=== PATIENT | male | born 1985 | race Two or more races ===

== ENCOUNTER 2017-11-26 05:56 | Emergency (ER) | payer MEDICAID, MEDICARE ==
[~2017-11-26] VITALS: Ht 175.3 cm; Wt 75.0 kg
[2017-11-26 07:34] VITALS: BP 129/78
[2017-11-26] MEDS ORDERED: LIDOCAINE HCL 1% 20ML VIAL (Pyxis) INJ INFIL ONE (08:45)
[2017-11-26] MEDS ORDERED: AZITHROMYCIN 500 MG TABLET PO ONE (08:45)
[2017-11-26] MEDS ORDERED: CEFTRIAXONE SODIUM 250 MG/VIAL IM ONE (08:45)
[2017-11-26] MEDS ORDERED: LIDOCAINE HCL/PF 1% 10 MG/ML 5ML VIAL IJ NR (08:54)
[2017-11-26 09:12] LABS: CLARITY URINE CLEAR (CLEAR); COLOR URINE YELLOW (YELLOW); KETONES URINE TRACE (NEGATIVE); LEUKOCYTE ESTERASE URINE 2+ (NEGATIVE); NITRITE URINE NEGATIVE (NEGATIVE); OCCULT BLOOD URINE NEGATIVE (NEGATIVE); PH URINE 7.5 (4.5-8.0); PROTEIN URINE NEGATIVE (NEGATIVE); SPECIFIC GRAVITY URINE 1.035 (1.005-1.030)
== END 2017-11-26 09:31 | disposition left against medical advice (07) ==
LOC: ER 05:56
DX: N39.0 Urinary tract infection, site not specified (principal); Z20.2 Contact with and (suspected) exposure to infections with a predominantly sexual mode of transmission; R36.9 Urethral discharge, unspecified; G40.909 Epilepsy, unspecified, not intractable, without status epilepticus; F12.10 Cannabis abuse, uncomplicated; F17.200 Nicotine dependence, unspecified, uncomplicated
CPT/HCPCS: 81003; 87086; 96372; 99284; J0696; J3490

== ENCOUNTER 2018-03-03 16:36 | Inpatient (IN) | payer MEDICARE ==
[~2018-03-03] VITALS: Ht 175.3 cm; Wt 76.7 kg
[2018-03-03] MEDS ORDERED: ONDANSETRON HCL 4MG/2ML INJ IV STA (18:01)
[2018-03-03] MEDS ORDERED: SODIUM CHLORIDE 0.9% 1,000 ML IV ONE (18:01)
[2018-03-03] MEDS ORDERED: MAGNESIUM/ALUMINUM HYDROXIDE/SIMETHICONE 30ML UDC PO STA (18:01)
[2018-03-03] MEDS ORDERED: MORPHINE SULFATE 4 MG/ML CPJ (NOT FOR IM USE) IV STA (18:01)
[2018-03-03] MEDS ORDERED: KETOROLAC 30MG/ML VIAL IV STA (18:01)
[2018-03-03] MEDS ORDERED: FAMOTIDINE 20MG/2ML VIAL IV STA (18:01)
[2018-03-03 18:28] LABS: BASOPHILS % 0.8 % (0.0-2.0); EOSINOPHILS % 4.2 % (0.0-5.0); HEMATOCRIT. 42.4 % (42.0-52.0); HEMOGLOBIN. 13.4 g/dL (14.0-18.0); LYMPHOCYTES % 20.1 % (20.0-50.0); MEAN CORPUSCULAR VOLUME 88.8 fL (80.0-94.0); MEAN PLATELET VOLUME 8.7 fl (7.4-10.4); MONOCYTES % 10.5 % (2.0-8.0); NEUTROPHILS % 64.4 % (40.0-76.0); PLATELET 272 x1000/uL (130-400); RED BLOOD CELL COUNT 4.78 mill/uL (4.7-6.1); RED CELL DISTRIBUTION WIDTH 12.8 % (11.6-14.6)
[2018-03-03 18:35] LABS: PROTHROMBIN TIME 10.2 sec (9.1-11.1)
[2018-03-03 18:43] LABS: CHLORIDE 107 mEq/L (98-107); ETHANOL BLOOD < 10 mg/dL
[2018-03-04 00:48] VITALS: BP 127/79
[2018-03-04] MEDS ORDERED: ONDANSETRON HCL 4MG/2ML INJ IV PRN (01:30)
[2018-03-04 02:00] VITALS: BP 128/78
[2018-03-04] MEDS: DEXT 5%/0.45% NACL 1000ML 1,000 ML IV SCH ×3 (02:44→18:38)
[2018-03-04 04:00] VITALS: BP 132/81
[2018-03-04] MEDS: PIPERACILLIN/TAZ 3.375G PREMIX 50 ML IV SCH ×3 (05:04→18:38)
[2018-03-04] MEDS: HEPARIN 5000 UNITS/ML VIAL SUBCUT SCH ×3 (05:04→21:46)
[2018-03-04] MEDS ORDERED: PIPERACILLIN/TAZOBACTAM 3.375GM/50ML PREMIX IV SCH (06:00)
[2018-03-04 06:50] LABS: BASOPHILS % 1.4 % (0.0-2.0); EOSINOPHILS % 7.9 % (0.0-5.0); HEMATOCRIT. 39.9 % (42.0-52.0); HEMOGLOBIN. 13.1 g/dL (14.0-18.0); LYMPHOCYTES % 31.4 % (20.0-50.0); MEAN CORPUSCULAR VOLUME 88.2 fL (80.0-94.0); MONOCYTES % 12.8 % (2.0-8.0); NEUTROPHILS % 46.5 % (40.0-76.0); PLATELET 261 x1000/uL (130-400); RED BLOOD CELL COUNT 4.52 mill/uL (4.7-6.1); RED CELL DISTRIBUTION WIDTH 12.7 % (11.6-14.6)
[2018-03-04 07:13] LABS: CHLORIDE 106 mEq/L (98-107)
[2018-03-04 08:00] VITALS: BP 126/87
[2018-03-04] MEDS: FAMOTIDINE 20MG/2ML VIAL IV SCH ×2 (08:56→21:46)
[2018-03-04 12:00] VITALS: BP 121/85
[2018-03-04] MEDS: NICOTINE 21MG PATCH TD SCH (13:13)
[2018-03-04 16:00] VITALS: BP 111/75
[2018-03-04 17:41] LABS: *AMPHETAMINES SCREEN URINE PRESUMTIVE POSITIVE (NEGATIVE); *BARBITURATES SCREEN URINE NEGATIVE (NEGATIVE); *BENZODIAZEPINES SCREEN URINE NEGATIVE (NEGATIVE); *COCAINE SCREEN URINE NEGATIVE (NEGATIVE); CANNABINOID URINE SCREEN PRESUMTIVE POSITIVE (NEGATIVE); METHADONE URINE SCREEN NEGATIVE (NEGATIVE); OPIATES URINE SCREEN NEGATIVE (NEGATIVE); PHENCYCLIDINE URINE SCREEN NEGATIVE (NEGATIVE)
[2018-03-05] VITALS: BP 112/72
[2018-03-05] MEDS: PIPERACILLIN/TAZ 3.375G PREMIX 50 ML IV SCH ×5 (00:18→23:52)
[2018-03-05] MEDS: DEXT 5%/0.45% NACL 1000ML 1,000 ML IV SCH ×3 (02:25→18:07)
[2018-03-05 04:00] VITALS: BP 123/82
[2018-03-05] MEDS: HEPARIN 5000 UNITS/ML VIAL SUBCUT SCH ×2 (06:33→14:11)
[2018-03-05 07:01] LABS: HEMATOCRIT 44.1 % (42.0-52.0); HEMOGLOBIN 14.4 g/dL (14.0-18.0); MEAN CORPUSCULAR HEMOGLOBIN 28.9 pg (28.0-32.0); MEAN CORPUSCULAR VOLUME 88.8 fL (80.0-94.0); PLATELET 271 x1000/uL (130-400); RED BLOOD CELL COUNT 4.96 mill/uL (4.7-6.1); RED CELL DISTRIBUTION WIDTH 12.7 % (11.6-14.6)
[2018-03-05 07:54] LABS: CHLORIDE 104 mEq/L (98-107)
[2018-03-05 08:00] VITALS: BP 127/74
[2018-03-05] MEDS: NICOTINE 21MG PATCH TD SCH (10:26)
[2018-03-05] MEDS: FAMOTIDINE 20MG/2ML VIAL IV SCH ×2 (10:26→23:52)
[2018-03-05 12:00] VITALS: BP 124/86
[2018-03-05 16:00] VITALS: BP 132/80
[2018-03-05 20:00] VITALS: BP 105/68
[2018-03-06] VITALS: BP 149/76
[2018-03-06 04:00] VITALS: BP 109/64
[2018-03-06] MEDS: PIPERACILLIN/TAZ 3.375G PREMIX 50 ML IV SCH ×3 (06:00→17:20)
[2018-03-06 07:20] LABS: INR 1.1; PARTIAL THROMBOPLASTIN TIME 32.6 sec (23.4-31.0); PROTHROMBIN TIME 10.8 sec (9.1-11.1)
[2018-03-06 07:31] LABS: BASOPHILS % 0.7 % (0.0-2.0); EOSINOPHILS % 6.3 % (0.0-5.0); HEMATOCRIT. 43.8 % (42.0-52.0); HEMOGLOBIN. 14.4 g/dL (14.0-18.0); LYMPHOCYTES % 35.9 % (20.0-50.0); MEAN CORPUSCULAR HEMOGLOBIN 28.9 pg (28.0-32.0); MEAN PLATELET VOLUME 9.2 fl (7.4-10.4); MONOCYTES % 13.2 % (2.0-8.0); NEUTROPHILS % 43.9 % (40.0-76.0); PLATELET 277 x1000/uL (130-400); RED BLOOD CELL COUNT 4.98 mill/uL (4.7-6.1); RED CELL DISTRIBUTION WIDTH 13.1 % (11.6-14.6)
[2018-03-06 08:00] VITALS: BP 113/76
[2018-03-06] MEDS: NICOTINE 21MG PATCH TD SCH (09:20)
[2018-03-06] MEDS: FAMOTIDINE 20MG/2ML VIAL IV SCH ×2 (09:20→21:06)
[2018-03-06] MEDS: DEXT 5%/0.45% NACL 1000ML 1,000 ML IV SCH ×3 (09:20→17:21)
[2018-03-06 11:04] LABS: CHLORIDE 103 mEq/L (98-107)
[2018-03-06 12:00] VITALS: BP 100/72
[2018-03-06] MEDS ORDERED: IOHEXOL-300 100 ML BOTTLE ONE (14:02)
[2018-03-06 16:00] VITALS: BP 116/73
[2018-03-06 20:00] VITALS: BP 122/75
[2018-03-07] VITALS: BP 100/62
[2018-03-07] MEDS: PIPERACILLIN/TAZ 3.375G PREMIX 50 ML IV SCH ×5 (00:08→23:41)
[2018-03-07] MEDS: DEXT 5%/0.45% NACL 1000ML 1,000 ML IV SCH ×3 (01:37→17:13)
[2018-03-07 04:00] VITALS: BP 105/57
[2018-03-07] MEDS: FAMOTIDINE 20MG/2ML VIAL IV SCH ×2 (09:16→21:27)
[2018-03-07] MEDS: NICOTINE 21MG PATCH TD SCH (09:16)
[2018-03-07 12:00] VITALS: BP 119/69
[2018-03-07] MEDS ORDERED: IOHEXOL-300 100 ML BOTTLE ONE (12:51)
[2018-03-07] MEDS ORDERED: SIMETHICONE 40 MG/0.6 ML 30ML ONE (12:51)
[2018-03-07] MEDS ORDERED: FENTANYL CITRATE/PF 50MCG/ML 2ML VIAL ONE (14:58)
[2018-03-07] MEDS ORDERED: MIDAZOLAM HCL 2 MG/2 ML VIAL ONE (14:59)
[2018-03-07] MEDS: MORPHINE SULFATE 4 MG/ML CPJ (NOT FOR IM USE) IV PRN (18:31)
[2018-03-07 18:35] VITALS: BP 128/89
[2018-03-07] MEDS ORDERED: ACETAMINOPHEN 650MG/20.3ML UDC PO PRN (19:45)
[2018-03-07 20:00] VITALS: BP 129/80
[2018-03-08] VITALS: BP 144/73
[2018-03-08] MEDS: MORPHINE SULFATE 4 MG/ML CPJ (NOT FOR IM USE) IV PRN (00:19)
[2018-03-08 04:00] VITALS: BP 113/58
[2018-03-08] MEDS: PIPERACILLIN/TAZ 3.375G PREMIX 50 ML IV SCH ×2 (06:19→12:23)
[2018-03-08 07:36] LABS: HEMATOCRIT 44.8 % (42.0-52.0); HEMOGLOBIN 14.6 g/dL (14.0-18.0); MEAN CORPUSCULAR HEMOGLOBIN 28.7 pg (28.0-32.0); MEAN CORPUSCULAR VOLUME 88.3 fL (80.0-94.0); PLATELET 284 x1000/uL (130-400); RED BLOOD CELL COUNT 5.07 mill/uL (4.7-6.1); RED CELL DISTRIBUTION WIDTH 13.1 % (11.6-14.6)
[2018-03-08 08:00] VITALS: BP 124/87
[2018-03-08] MEDS: NICOTINE 21MG PATCH TD SCH (09:18)
[2018-03-08] MEDS: FAMOTIDINE 20MG/2ML VIAL IV SCH (09:18)
[2018-03-08 11:00] LABS: CHLORIDE 105 mEq/L (98-107)
[2018-03-08 12:00] VITALS: BP 116/69
[2018-03-08 13:26] VITALS: BP 116/69
== END 2018-03-08 14:15 | disposition home or self-care (01) ==
LOC: ER 16:36 → 6EST 21:32 → ENRESERV 21:46
PROVIDERS: ADMIT Internal Medicine; ATTEND Internal Medicine
PROC: BF131ZZ Fluoroscopy of Gallbladder and Bile Ducts using Low Osmolar Contrast (ICD-10-PCS; 2018-03-07)
PROC: 0F798ZZ Dilation of Common Bile Duct, Via Natural or Artificial Opening Endoscopic (ICD-10-PCS; principal; 2018-03-07 15:00)
DX: K80.70 Calculus of gallbladder and bile duct without cholecystitis without obstruction (principal); E88.09 Other disorders of plasma-protein metabolism, not elsewhere classified; J44.9 Chronic obstructive pulmonary disease, unspecified; D64.9 Anemia, unspecified; F17.210 Nicotine dependence, cigarettes, uncomplicated; E80.6 Other disorders of bilirubin metabolism; F19.10 Other psychoactive substance abuse, uncomplicated
CPT/HCPCS: 36415; 71045; 74176; 74181; 74328; 76705; 80076; 80305; 82248; 84484; 85027; 93005; 96361; 96374; 96375; 99285; C1726; C1769; G0482; J1644; J1885; J2250; J2270; J2405; J2543; J3010; J3490; J7030; Q9967

== ENCOUNTER 2020-03-08 23:04 | Emergency (ER) | payer MEDICAID, MEDICARE ==
[~2020-03-08] VITALS: Ht 175.3 cm; Wt 79.0 kg
[2020-03-08] MEDS ORDERED: AZITHROMYCIN 500 MG TABLET PO ONE (23:45)
[2020-03-08] MEDS ORDERED: CEFTRIAXONE SODIUM 1 G/VIAL IM ONE (23:45)
[2020-03-08] MEDS ORDERED: LIDOCAINE HCL 1% 20ML VIAL (Pyxis) INJ INFIL ONE (23:45)
[2020-03-09 00:13] VITALS: BP 115/79
[2020-03-09 01:57] LABS: CLARITY URINE CLEAR (CLEAR); COLOR URINE YELLOW (YELLOW); KETONES URINE 1+ (NEGATIVE); LEUKOCYTE ESTERASE URINE 2+ (NEGATIVE); NITRITE URINE NEGATIVE (NEGATIVE); OCCULT BLOOD URINE NEGATIVE (NEGATIVE); PH URINE 5.5 (4.5-8.0); PROTEIN URINE NEGATIVE (NEGATIVE); SPECIFIC GRAVITY URINE 1.031 (1.005-1.030)
== END 2020-03-09 02:00 | disposition home or self-care (01) ==
LOC: ER 23:04
DX: S60.861A Insect bite (nonvenomous) of right wrist, initial encounter (principal); W57.XXXA Bitten or stung by nonvenomous insect and other nonvenomous arthropods, initial encounter; Y93.89 Activity, other specified; Y92.89 Other specified places as the place of occurrence of the external cause; Y99.8 Other external cause status; F12.10 Cannabis abuse, uncomplicated
CPT/HCPCS: 73090; 81003; 87086; 96372; 99284; J0696; J3490

== ENCOUNTER 2020-06-19 11:41 | Emergency (ER) | payer MEDICAID ==
[~2020-06-19] VITALS: Ht 175.3 cm; Wt 79.0 kg
[2020-06-19] MEDS ORDERED: CEFTRIAXONE SODIUM 500 MG/VIAL IM ONE (12:15)
[2020-06-19] MEDS ORDERED: DOXYCYCLINE HYCLATE 100MG CAPSULE PO ONE (12:15)
[2020-06-19] MEDS ORDERED: DOXY100C2 MT (12:20)
[2020-06-19 12:31] VITALS: BP 114/89
[2020-06-22 09:09] LABS: NEISSERIA GONORRHOEAE NAA Positive (Negative)
== END 2020-06-19 12:32 | disposition home or self-care (01) ==
LOC: ER 11:41
DX: A54.09 Other gonococcal infection of lower genitourinary tract (principal); G40.909 Epilepsy, unspecified, not intractable, without status epilepticus; F12.10 Cannabis abuse, uncomplicated
CPT/HCPCS: 87491; 87591; 96372; 99283; J0696; Z7610

== ENCOUNTER 2020-12-14 14:45 | Emergency (ER) | payer MEDICAID, OTHER ==
[~2020-12-14] VITALS: Ht 180.3 cm; Wt 88.0 kg
[~2020-12-14 14:45] MED LIST: ACET-2708 MT; DOXY100C2 MT
[2020-12-14] MEDS ORDERED: LORAZEPAM 2MG/ML CPJ IV ONE (15:45)
[2020-12-14] MEDS ORDERED: LEVETIRACETAM 500MG PREMIX 100 ML IV ONE (15:45)
[2020-12-14 15:55] LABS: BASOPHILS % 0.8 % (0.0-2.0); EOSINOPHILS % 1.9 % (0.0-5.0); HEMATOCRIT. 44.9 % (42.0-52.0); HEMOGLOBIN. 14.4 g/dL (14.0-18.0); MEAN CORPUSCULAR HEMOGLOBIN 28.4 pg (28.0-32.0); MEAN CORPUSCULAR VOLUME 88.6 fL (80.0-94.0); MEAN PLATELET VOLUME 8.7 fl (7.4-10.4); MONOCYTES % 12.9 % (2.0-8.0); NEUTROPHILS % 57.4 % (40.0-76.0); PLATELET 249 x1000/uL (130-400); RED BLOOD CELL COUNT 5.07 mill/uL (4.7-6.1); RED CELL DISTRIBUTION WIDTH 12.7 % (11.6-14.6)
[2020-12-14 15:57] LABS: CHLORIDE 110 mEq/L (98-107)
[2020-12-14 16:01] LABS: ETHANOL BLOOD < 10 mg/dL
[2020-12-14 17:15] VITALS: BP 132/72
[2020-12-14 17:25] LABS: CLARITY URINE CLEAR (CLEAR); COLOR URINE DARK YELLOW (YELLOW); KETONES URINE TRACE (NEGATIVE); LEUKOCYTE ESTERASE URINE NEGATIVE (NEGATIVE); NITRITE URINE NEGATIVE (NEGATIVE); OCCULT BLOOD URINE NEGATIVE (NEGATIVE); PH URINE 5.5 (4.5-8.0); PROTEIN URINE 1+ (NEGATIVE); SPECIFIC GRAVITY URINE 1.031 (1.005-1.030)
[2020-12-14 17:52] LABS: *AMPHETAMINES SCREEN URINE PRESUMTIVE POSITIVE (NEGATIVE); *BARBITURATES SCREEN URINE NEGATIVE (NEGATIVE)
[2020-12-14 17:53] LABS: *BENZODIAZEPINES SCREEN URINE NEGATIVE (NEGATIVE); *COCAINE SCREEN URINE NEGATIVE (NEGATIVE); CANNABINOID URINE SCREEN PRESUMTIVE POSITIVE (NEGATIVE); METHADONE URINE SCREEN NEGATIVE (NEGATIVE); OPIATES URINE SCREEN NEGATIVE (NEGATIVE); PHENCYCLIDINE URINE SCREEN NEGATIVE (NEGATIVE)
== END 2020-12-14 17:13 | disposition home or self-care (01) ==
LOC: ER 14:45
DX: R56.9 Unspecified convulsions (principal); F12.10 Cannabis abuse, uncomplicated; F15.10 Other stimulant abuse, uncomplicated
CPT/HCPCS: 36415; 71045; 80053; 80305; 80320; 81003; 85025; 93005; 96365; 96375; 99285; J1953; J2060; G0480